=== PATIENT | male | born 1945 | race Caucasian/White ===

== ENCOUNTER 2024-11-24 03:07 | Emergency (ER) | payer OTHER, SELFPAY ==
[2024-11-24 03:19] VITALS: BP 142/87; PULSE 93; RESP 18; TEMP 37.7; O2SAT 98; BMI 26.6
--- NOTE | 2024-11-24 03:45 | EDRME_ITS ---
Rapid Medical Screening Exam [facility] Arrival date/time: 11/24/24 03:07 Chief Complaint: Abdominal Pain Time Seen by Provider: 11/24/24 03:14 Vital signs: Vital Signs Temperature 99.9 F 11/24/24 03:19 Pulse Rate 93 11/24/24 03:19 Respiratory Rate 18 11/24/24 03:19 Blood Pressure 142/87 H 11/24/24 03:19 Pulse Oximetry (%) 98 11/24/24 03:19 Oxygen Delivery Method Room Air 11/24/24 03:19 [facility] Narrative: Single episode of diarrhea with blood in stool this morning. Denies abdominal pain. Also reports urine has been dark, malodorous. No dysuria. Hx dementia. Takes baby ASA daily.
[2024-11-24 04:07] LABS: Basophils # (Auto) 0.0 Thou/mm3 (0.0-0.2); Basophils % (Auto) 0 % (0-2.5); Eosinophils # (Auto) 0.1 Thou/mm3 (0.0-0.5); Eosinophils % (Auto) 0 % (0-10); Hematocrit 44.0 % (41.0-53.0); Hemoglobin 14.9 g/dL (13.5-16.0); Immature Granulocytes Auto 0.07 Thou/mm3 (0.00-0.00); Lymphocytes # (Auto) 0.5 Thou/mm3 (1.0-4.8); Lymphocytes % (Auto) 4 % (10-50); Mean Corpuscular HGB Conc 33.9 g/dl (31.0-37.0); Mean Corpuscular Hemoglobin 30.1 pg (25.0-35.0); Mean Corpuscular Volume 89 fL (80-100); Monocytes # (Auto) 0.7 Thou/mm3 (0.0-0.8); Monocytes % (Auto) 5 % (0-12); Neutrophils # (Auto) 13.0 Thou/mm3 (1.8-7.7); Neutrophils % (Auto) 91 % (37-80); Nucleated Red Blood Cell # 0.00 Thou/mm3 (0.00-0.00); Nucleated Red Blood Cell % 0 /100 WBC (0); Platelet Count 201 Thou/mm3 (140-440); RDW Standard Deviation 50.7 fL (35.1-43.9); Red Blood Count 4.95 Miln/mm3 (4.50-5.90); White Blood Count 14.4 Thou/mm3 (3.8-10.6)
[2024-11-24 04:19] LABS: INR 1.0 (0.9-1.3); Partial Thromboplastin Time 22.6 Seconds (22.0-36.0); Prothrombin Time 11.0 Seconds (9.0-12.2)
[2024-11-24 04:26] LABS: Alanine Aminotransferase 65 U/L (10-49); Albumin, Serum 4.2 gm/dL (3.4-4.8); Albumin/Globulin Ratio 1.4 (1.2-2.2); Alkaline Phosphatase 116 U/L (46-116); Anion Gap 8 (7-16); Aspartate Amino Transferase 49 U/L (0-34); BUN/Creatinine Ratio 8 Ratio (12-20); Bilirubin,Total 1.0 mg/dL (0.3-1.2); Blood Urea Nitrogen 10 mg/dL (9-23); Calcium 9.5 mg/dL (8.3-10.6); Calcium (Corrected) 9.5 mg/dL (8.5-10.1); Carbon Dioxide 25.8 mMol/L (20.0-31.0); Chloride 109 mMol/L (98-107); Creatinine (Component) 1.2 mg/dL (0.6-1.3); Estimated Creatinine Clearance 49.1 mL/min (>60); Globulin 2.9 gm/dL (2.3-3.5); Glucose 118 mg/dL (74-106); Lipase 34 U/L (12-53); Osmolality,Calculated 284 (275-295); Potassium 4.3 mMol/L (3.4-5.1); Sodium 143 mMol/L (136-145); Total Protein 7.1 gm/dL (5.7-8.2); eGFR > 60 See Note
--- NOTE | 2024-11-24 04:41 | XR_ITS ---
Examination: CT abdomen and pelvis without contrast. Coronal 3-D reconstructions. Sagittal 2-D reconstructions. Date and time of exam:November 24, 2024, 0507 hours INDICATIONS: Abdominal pain diarrhea rectal bleeding beginning yesterday. CTDI: vol (mGy): 7.46. DLP: (mGycm): 441. Technique: Axial images of the abdomen have been obtained, 3 mm slice thickness Intravenous contrast material has not been administered. Low dose protocols were performed. One or more of the following dose reduction techniques were used; automated exposure control, adjustment of the mA and/or KV according to patient size, use of iterative reconstruction technique. Findings: No focal liver or splenic lesions No gallstones No pancreatic mass No renal or ureteral calculi Abdominal aortic calcification no aneurysmal dilatation. Normal appendix Small fat-containing umbilical hernia. No diverticulitis Mild thickening of the urinary bladder wall Normal sonographic vesicles Marked thickening of the rectal wall Mild prostatomegaly Significant osteopenia IMPRESSION: Marked thickening of the rectal wall, differential would include proctitis, rectal tumor, recommend direct inspection
--- NOTE | 2024-11-24 06:27 | PRELIM_ITS ---
CT scan of the abdomen and pelvis without intravenous contrast (axial sections with sagittal and coronal reformats) November 24, 2024 at 0507 hours Clinical History: Diarrhea with rectal bleeding. Radiation Dose: Total examination DLP 442 mGy x cm. Comparison: No prior study is available for comparison. Findings: Bibasilar streaky atelectasis is present. Coronary artery calcification is noted. There is a calcific nodule in the right lower lobe, suggestive of infective granuloma. There is fatty infiltration of liver. The hepatic size is unremarkable. There is no hepatic focal lesion. There is a tiny left renal hypodensity, too small to characterize. There is no renal, ureteric calculus or hydroureteronephrosis on either side. The gallbladder, pancreas, spleen and adrenals are unremarkable on this noncontrast study. A small hiatal hernia is present. A moderate amount of fecal material is present in the colon. There are colonic diverticula, without diverticulitis. No evidence of bowel obstruction. There is diffuse thickening of the rectal wall with perirectal fat stranding.The appendix is within normal limits (images [id number]. There is no mesenteric or retroperitoneal adenopathy. There is moderate prostatomegaly with diffuse thickening of the urinary bladder wall, suggestive of sequelae of chronic bladder outflow obstruction. There is no free fluid or free air. A small fat-containing umbilical hernia is present. There are bilateral inguinal hernia containing fat. The abdominal aorta demonstrates atheromatous calcification without evidence of aneurysm. Degenerative changes are identified in the spine. Impression: Acute proctitis. Recommend clinical correlation and follow up. Other findings as described above. Report Electronically Signed By: Wiley Tierney 11/24/2024 6:27:35 AM [EST]
[2024-11-24 06:30] LABS: Collection Type, Urine Clean Catch; Squamous Epithelial Cell,Urine 0 /hpf (0-5)
[2024-11-24 07:50] LABS: Bilirubin,Urine Negative (Negative); Blood,Urine Negative (Negative); Clarity,Urine Clear (Clear/Hazy); Color,Urine Yellow (Lt Yel-Yel); Glucose, Urine Negative (Negative); Ketones,Urine Negative (Negative); Leukocyte Esterase,Urine Negative (Negative); Nitrite,Urine Negative (Negative); PH,Urine 5.5 (5.0-7.0); Protein,Urine Trace (Neg - Trace); RBC,Urine 2 /hpf (0-3); Specific Gravity,Urine 1.026 (1.001-1.035); Urobilinogen,Urine Negative mg/dL (0.0-1.0); WBC,Urine 1 /hpf (0-5)
[2024-11-24 07:57] VITALS: BP 147/95; PULSE 82; RESP 16; TEMP 37.4; O2SAT 99
--- NOTE | 2024-11-24 08:08 | PD.EDABDPN ---
ED Abdominal Pain RME/HPI General Chief Complaint: Abdominal Pain Stated complaint: ABD PAIN Time seen by provider: 11/24/24 03:14 Arrival date/time: 11/24/24 03:07 Patient came in overnight c/o abdominal pain and blood in stool. Per son now at bedside, patient had a bowel movement in the lobby bathroom and complained of pain in his rectum. Son also states that patient has a h/o dementia therefore the patient is unable to provide history. Son will try to get more information from the patient's . RME / HPI RME / HPI narrative: Single episode of diarrhea with blood in stool this morning. Denies abdominal pain. Also reports urine has been dark, malodorous. No dysuria. Hx dementia. Takes baby ASA daily. Related Data Previous Rx's ?Medication ?Instructions ?Recorded albuterol sulfate 90 mcg/actuation 2 inh inhalation Q6H PRN shortness 10/27/23 breath activated powder inhaler of breath or wheezing #1 ea albuterol sulfate 90 mcg/actuation 2 inh inhalation Q6H PRN shortness 10/27/23 breath activated powder inhaler of breath or wheezing #1 ea Allergies Allergy/AdvReac Type Severity Reaction Status Date / Time codeine Allergy Verified 10/27/23 07:43 Review of Systems Review of Systems ROS Unobtainable: unobtainable due to mental status; No unobtainable due to medical condition, due to endotracheal tube or other ED Exam Narrative Physical exam: GENERAL APPEARANCE: alert and oriented x 4, well-developed, well-nourished, no acute distress HEENT: Normocephalic, atraumatic; pupils equal, round, reactive to light; EOMI; mucous membranes pink, moist; oropharynx clear NECK: Supple LUNGS: CTABL; no wheezes, no rales, no rhonchi HEART: Regular rate, regular rhythm; normal S1, S2; no murmurs ABDOMEN: non distended; normal BS; soft, no tenderness, no guarding, no rebound; no masses, no organomegaly, no hernia BACK: no CVA tenderness EXTREMITIES: atraumatic; no edema NEUROLOGIC: awake; alert and oriented x4; cranial nerves II-XII grossly intact; no focal sensory or motor deficits PSYCHIATRIC: appropriate mood and affect SKIN: warm, dry, normal color; no rashes Course Quality Measures none Orders Category Date Time Status CT abdomen pelvis wo con Stat Exams 11/24/24 04:41 Completed Blood Culture (Lab) Stat Lab 11/24/24 07:59 Ordered CBC Stat Lab 11/24/24 03:52 Completed CMP [Comprehensive Metabolic Panel] Stat Lab 11/24/24 03:52 Completed Lactate (Lactic Acid) Stat Lab 11/24/24 07:59 Ordered Lipase Stat Lab 11/24/24 03:52 Completed Partial Thromboplastin Time Stat Lab 11/24/24 03:52 Completed Procalcitonin Stat Lab 11/24/24 07:59 Ordered Prothrombin Time with INR Stat Lab 11/24/24 03:52 Completed UA [Urinalysis] Stat Lab 11/24/24 06:27 Completed UA, C/S IF [Urinalysis, C/S if Indicated] Stat Lab 11/24/24 08:00 Ordered Vital Signs Vital signs: Vital Signs Temperature 99.9 F 11/24/24 03:19 Pulse Rate 93 11/24/24 03:19 Respiratory Rate 18 11/24/24 03:19 Blood Pressure 142/87 H 11/24/24 03:19 Pulse Oximetry (%) 98 11/24/24 03:19 Oxygen Delivery Method Room Air 11/24/24 03:19 Abdominal Pain MDM MDM Narrative MDM Narrative:: Patient has been in lobby for 4:50 hrs. On chart review, patient noted to have signs of early sepsis. Requested ED bed. Adding appropriate labs. Patient data External records reviewed:: [facility] previous records Clinical information provided by:: family Social determinants that could affect healthcare access:: none Discharge Plan Prescriptions/Referrals Prescriptions/Med Rec: No Action albuterol sulfate 90 mcg/actuation aerosol powdr breath activated 2 inh inhalation Q6H PRN (Reason: shortness of breath or wheezing) Qty: 1 0RF albuterol sulfate 90 mcg/actuation aerosol powdr breath activated 2 inh inhalation Q6H PRN (Reason: shortness of breath or wheezing) Qty: 1 0RF Referrals: No Primary/Family,Physician [Primary Care Provider] - In 1 week Patient/Caregiver Discharge Instructions Print Language: [place]
[2024-11-24 08:47] LABS: Lactate (Lactic Acid) 1.4 mMol/L (0.4-2.0)
[2024-11-24 09:26] LABS: Procalcitonin 0.14 ng/ml (0.0-0.49)
[2024-11-24 09:49] VITALS: BP 131/75; PULSE 83; RESP 12; TEMP 37.1; O2SAT 97
[2024-11-24 11:46] VITALS: BP 131/64; PULSE 69; RESP 15; TEMP 36.9; O2SAT 95
[2024-11-24] MEDS: CIPROFLOXACIN HCL 250 MG TABLET 500 MG PO (12:47)
[2024-11-24 12:50] VITALS: BP 124/68; PULSE 84; RESP 16; TEMP 37.1; O2SAT 99
== END 2024-11-24 13:06 | disposition home or self-care (01) ==
PROVIDERS: Physician Assistant; Emergency Provider Emergency Medicine
DX: R10.9 Unspecified abdominal pain (principal); F03.90 Unspecified dementia, unspecified severity, without behavioral disturbance, psychotic disturbance, mood disturbance, and anxiety; K62.89 Other specified diseases of anus and rectum
CPT/HCPCS: 36415; 74176; 80053; 81001; 83605; 83690; 84145; 85025; 85610; 85730; 87040; 99284; A9270